=== PATIENT | male | born 1955 | race Caucasian/White ===

== ENCOUNTER 2022-06-10 10:30 | Emergency (ER) | payer MEDICARE ==
[~2022-06-10] VITALS: Ht 188 cm; Wt 87.7 kg
[~2022-06-10 10:30] MED LIST: ALBU6.7H9 INH; BUDE180A INH; FLO0.4C PO; LEVO-65 PO; ONDA4TAB6 PO
[2022-06-10 10:35] VITALS: BP 133/85
[2022-06-10] MEDS ORDERED: GUAI400T92 PO (11:59)
[2022-06-10] MEDS ORDERED: BENZ-38 PO (11:59)
== END 2022-06-10 12:11 | disposition home or self-care (01) ==
LOC: ER 10:30
DX: R05.3 Chronic cough (principal); U09.9 Post COVID-19 condition, unspecified; R09.89 Other specified symptoms and signs involving the circulatory and respiratory systems; Z90.89 Acquired absence of other organs; Z98.890 Other specified postprocedural states; Z79.2 Long term (current) use of antibiotics; Z79.899 Other long term (current) drug therapy
CPT/HCPCS: 99283

== ENCOUNTER 2024-08-04 09:04 | Emergency (ER) | payer MEDICARE ==
[~2024-08-04] VITALS: Ht 188 cm; Wt 90.9 kg
[2024-08-04 09:04] VITALS: BP 156/77; PULSE 72; RESP 20; O2SAT 99
[~2024-08-04 09:04] MED LIST changes: +ALBU6.7H14 INH; -ALBU6.7H9 INH; +GUAI400T92 PO; -LEVO-65 PO
[2024-08-04] MEDS ORDERED: CefTRIAXone 1000mg IM Kit (w/lidocaine diluent) IM ONE (11:45)
[2024-08-04] MEDS ORDERED: PROM118S5 PO (12:02)
[2024-08-04] MEDS ORDERED: ALBU8HFA INH (12:02)
[2024-08-04 12:14] VITALS: TEMP 98
== END 2024-08-04 12:16 | disposition home or self-care (01) ==
LOC: ER 09:04
DX: J06.9 Acute upper respiratory infection, unspecified (principal); Z91.048 Other nonmedicinal substance allergy status; Z79.899 Other long term (current) drug therapy; Z79.51 Long term (current) use of inhaled steroids; Z90.49 Acquired absence of other specified parts of digestive tract; Z98.890 Other specified postprocedural states
CPT/HCPCS: 71046; 99283